=== PATIENT | male | born 1965 | race Caucasian/White ===

== ENCOUNTER 2016-11-24 12:01 | Inpatient (IN) | payer OTHER ==
[2016-11-24] MEDS ORDERED: diphenhydrAMINE 25 MG CAP PO ONE ×2 (12:04→12:31)
[2016-11-24] MEDS ORDERED: DIAZEPAM 5 MG TAB PO ONE (12:04)
[2016-11-24] MEDS ORDERED: NS 1,000 ML IV ONE (12:04)
[2016-11-24] MEDS ORDERED: FAMOTIDINE 20 MG TAB PO ONE (12:04)
[2016-11-24] MEDS ORDERED: ASPIRIN EC 325 MG TAB PO ONE ×2 (12:04→12:32)
--- NOTE | 2016-11-24 12:23 | CPEKG ---
Heart Rate: 54 RR Interval: 1111 P-R Interval: 160 QRSD Interval: 94 QT Interval: 416 QTC Interval: 395 P [place]: 71 QRS [place]: -54 T Wave [place]: -41 EKG Severity - ABNORMAL ECG - EKG Impression: SINUS RHYTHM EKG Impression: PROBABLE LEFT ATRIAL ABNORMALITY EKG Impression: LEFT ANTERIOR FASCICULAR BLOCK EKG Impression: INFERIOR AND LATERAL T WAVE ABNORMALITIES CONCERNING FOR ISCHEMIA Electronically Signed By: Jm Galaviz 24-Nov-2016 18:24:55
[2016-11-24] MEDS ORDERED: FAMOTIDINE 20 MG TAB ONE (12:31)
[2016-11-24] MEDS ORDERED: DIAZEPAM 5 MG TAB ONE (12:32)
[2016-11-24 12:35] LABS: % IMMATURE GRANULYOCYTES 0.4 % (0.0-1.1); ABSOLUTE IMMATURE GRANULOCYTES 0.02 10^3/uL (0.00-0.10); ADD DIFF? NO; ADD MORPH? NO; ADD SCAN? NO; ATYPICAL LYMPHOCYTE FLAG 20 (0-99); FRAGMENT RBC FLAG 0 (0-99); HEMATOCRIT 45.1 % (40.0-51.0); HEMOGLOBIN 15.9 g/dL (13.7-17.5); LEFT SHIFT FLG 0 (0-99); LIPEMIA HEMOLYSIS FLAG 90 (0-99); MEAN CELL HEMOGLOBIN 31.5 pg (27.9-34.1); MEAN CELL HEMOGLOBIN CONCENTR. 35.3 g/dL (32.4-36.7); MEAN CELL VOLUME 89.3 fL (81.5-99.8); MEAN PLATELET VOLUME 11.6 fL (8.7-11.7); PLATELET CLUMPS FLAG 10 (0-99); PLATELET COUNT 178 10^3/uL (150-400); RED BLOOD CELL COUNT 5.05 10^6/uL (4.40-6.38); RED CELL DISTRIBUTION WIDTH 11.6 % (11.5-15.2)
[2016-11-24 12:47] LABS: INR 1.02 (0.83-1.16); PROTIME(PATIENT) 13.3 SEC (12.0-15.0)
[2016-11-24 12:59] LABS: ANION GAP 10 mEq/L (8-16); CALCIUM 9.6 mg/dL (8.5-10.4); CARBON DIOXIDE 23 mEq/l (22-31); CHLORIDE 106 mEq/L (97-110); CHOLESTEROL 202 mg/dL (140-220); CHOLESTEROL/HDL RATIO 5.32 RATIO (1.00-4.97); GLOMERULAR FILTRATION RATE > 60; GLUCOSE 93 mg/dL (70-100); HIGH DENSITY LIPOPROTEIN 38 mg/dL (40-65); LDL/HDL RATIO 3.61 RATIO (1.00-3.64); LOW DENSITY LIPOPROTEIN 137 mg/dL (80-100); NON-HIGH DENSITY LIPOPROTEIN 164 mg/dL (90-129); POTASSIUM 4.4 mEq/L (3.5-5.2); SODIUM 139 mEq/L (134-144); TRIGLYCERIDE 138 mg/dL (40-150); VERY LOW DENSITY LIPOPROTEINS 27 mg/dL (8-25)
[2016-11-24] MEDS ORDERED: LIDOCAINE 1% 30 ML SDV ONE (13:21)
[2016-11-24] MEDS ORDERED: fentaNYL 100 MCG/2 ML INJ ONE ×2 (13:21→14:10)
[2016-11-24] MEDS ORDERED: HEPARIN 10,000 UNIT/10 ML MDV ONE (13:22)
[2016-11-24] MEDS ORDERED: VERAPAMIL 5 MG/2 ML VIAL ONE (13:22)
[2016-11-24] MEDS ORDERED: IOPAMIDOL (ISOVUE-370) 150 ML BTL IV ONE ×2 (13:22→14:19)
[2016-11-24] MEDS ORDERED: MIDAZOLAM 2 MG/2 ML VIAL ONE ×2 (13:22→14:10)
--- NOTE | 2016-11-24 14:53 | PDDXCAT ---
Diagnostic Cath Note - . Date: 11/24/16 Intervention: None *Procedure 1. selective coronary angiography 2. left heart catheterization 3. left ventriculogram Indication: The patient is short of breath with exertion with a high-risk MPI study with transient ischemic dilation as well as multisegmental perfusion deficits on MIBI study and highly elevated calcium score on EBCT heart scan. Access: Right radial artery (a plethysmography trace assisted Víctor's Test was used to document dual artery supply to the hand and index finger prior to access ). *Materials Left Heart Cath size: 5F Left Heart Cath materials: JL3.5, JR4.0, pigtail *Findings-Selective Coronary Angiography LM: The left main is ~5 mm in size and bifurcates into an LAD and circumflex system. There is no significant left main disease. LAD: The LAD is 100% occluded after the first major diagonal with GENARO 0 flow. The proximal LAD is filled by right to left collaterals from the proximal RCA conus branch "arterial [place] of [place]." There are left to right collaterals to a distal acute marginal branch of the RCA. There are left to left collaterals from the first diagonal that supply the distal LAD, which retrograde fills the LAD. The first diagonal is a large vessel and has a 90% proximal obstruction with GENARO III flow it has a better distal target than the LAD angiographically. LCX: The left circumflex is ~3 mm in size. There is an 80% proximal lesion with GENARO III flow. RCA: The right coronary artery is dominant and ~4 mm in size. There is a 95% mid RCA obstruction with GENARO III flow. There is evidence of proximal right to left collateral to the proximal LAD consistent with a proximal LAD occlusion. *Findings-Left Heart Catheterization EDP: 31 mmHg LVEF: 65% AO: 118/18/31 mmHg LVG: There is normal LV systolic function with normal ejection fraction without significant segmental wall motion abnormalities. The visualized portion of the thoracic aorta appears to be within normal limits in size without evidence of radha dissection or aneurysm. There was no evidence of mitral regurgitation under pressurized injection. *Summary Complications: None Estimated blood loss: <50ml Closure method: TR Band Assessment/Conclusion: 1. Severe and multi-vessel flow-limiting coronary artery disease including a 100 % occlusion of the LAD after the first diagonal with GENARO 0 flow, 90% first and major diagonal obstruction with GENARO III flow, 80% proximal left circumflex lesion with GENARO III flow, and 95% mid LAD lesion with GENARO III flow. I discussed the patient with Dr. Gill who will discuss the risk/benefit of bypass surgery with DOS SANTOS to the LAD, rSVG to the left circumflex, LAD diagonal and right coronary artery, as well as other arterial graft options in this young patient. 2. Normal LV systolic function with minor anterolateral wall motion abnormality best described as tardikinesis and normal ejection fraction estimated to be 65%.
[2016-11-24] MEDS ORDERED: ATROPINE SULFATE 1 MG/10 ML SYR IVP PRN (14:54)
[2016-11-24] MEDS ORDERED: ONDANSETRON DISINTEGRATING 4 MG TAB PO PRN (14:54)
[2016-11-24] MEDS ORDERED: ONDANSETRON 4 MG/2 ML VIAL IVP PRN (14:54)
[2016-11-24] MEDS ORDERED: NITROGLYCERIN 0.4 MG BTL SL PRN (14:54)
[2016-11-24] MEDS ORDERED: NS 1,000 ML IV SCH (15:00)
--- NOTE | 2016-11-24 16:42 | GCON ---
[f rep st] CONSULTATION DATE OF CONSULTATION: 11/24/2016 REASON FOR CONSULTATION: Patient seen at the request of Dr. Daren Johnson, with the patient's permissi on. IMPRESSION: 1. Severe 3-vessel coronary artery disease. 2. History of carotid artery disease without significant obstruction. 3. Evidence of remote infarction with an ejection fraction of 51% and inferior and apical wall hypo kinesis. RECOMMENDATIONS: This gentleman should undergo coronary artery revascularization on this admission. He has a critical lesion and has a very large dominant right coronary artery and a totally occlude d LAD with circumflex disease as well. Given his coronary anatomy and lack of warning symptomatolog y, he is agreeable to proceed with surgery in the morning. Risks and complications were reviewed at length with the patient and his significant other. CHIEF COMPLAINT: This is a 51-year-old gentleman with no prior medical history. He requested a cor onary calcium score, which was performed and was markedly elevated at 2464, putting him in the 90th percentile for age matched patients. He had an exercise nuclear stress test with T-wave inversion i n leads 3 and F, with 2-3 mm depression, showed moderate size, moderate intensity area of ischemia i nvolving the apex, mid, and basal inferior wall. There was a 2nd area involving the apex anterior a nd apical septal mid anterior and mid anterior septal wall, consistent with ischemia. He underwent diagnostic left heart catheterization today by Dr. Benton, which revealed severe 3-vessel disease. Please see separate dictation. PREVIOUS MEDICAL HISTORY: As stated. SURGERIES: Denied. SOCIAL HISTORY: He does not smoke and never has. He drinks socially on the weekends. He is very a ctive physically. FAMILY HISTORY: Noncontributory for early or premature coronary atherosclerosis. MEDICATIONS: Aspirin and atorvastatin, which was recently started. Cholesterol status is at present unknown. PHYSICAL EXAMINATION: GENERAL: This is a healthy, middle-aged gentleman, lying supine in bed, acco mpanied by his girlfriend. VITAL SIGNS: 118/76, pulse 70, respirations 14, nonlabored. HEENT: No rmocephalic, PADMINI, EOMI. NECK: Without bruit, adenopathy or thyromegaly. HEART: Rate is regular without murmur, S3, or S4. LUNGS: Clear. ABDOMEN: Soft, nontender. Bowel sounds are active. R ECTAL AND GENITALIA: Deferred. EXTREMITIES: Pedal pulses are 2+ and symmetrical. Echo suggested ejection fraction close to 63%. /[id number]/MODL
[2016-11-24] MEDS ORDERED: CHLORHEXIDINE GLUC HIBICLENS 118 ML BTL TP SCH (21:00)
[2016-11-24] MEDS: MUPIROCIN 2% 22 GM OINT NS SCH (22:00)
[2016-11-25 04:53] LABS: ANION GAP 10 mEq/L (8-16); CARBON DIOXIDE 25 mEq/l (22-31); CHLORIDE 107 mEq/L (97-110); CREATININE 1.1 mg/dL (0.7-1.3); GLOMERULAR FILTRATION RATE > 60; GLUCOSE 87 mg/dL (70-100); POTASSIUM 4.4 mEq/L (3.5-5.2); SODIUM 142 mEq/L (134-144)
[2016-11-25] MEDS ORDERED: SODIUM BICARBONATE 20 MEQ, LIDOCAINE 1% 10 ML in NORMOSOL-R 1,000 ML MISC ONE (06:00)
[2016-11-25] MEDS ORDERED: ceFAZolin 2 GM/DEXTROSE 100 ML IV ONE (06:00)
[2016-11-25] MEDS ORDERED: VERAPAMIL 5 MG, NITROGLYCERIN 2.5 MG, HEPARIN 500 UNIT, SODIUM BICARBONATE 0.2 MEQ in L... MISC ONE (06:00)
[2016-11-25] MEDS ORDERED: niCARdipine/NACL 200 ML IV ONE (06:00)
[2016-11-25] MEDS ORDERED: NS 1,000 ML IV ONE (06:00)
[2016-11-25] MEDS ORDERED: AMINOCAPROIC ACID 5 GM/20 ML VIAL IV ONE (06:00)
[2016-11-25] MEDS ORDERED: MANNITOL 25% 12.5 GM/50 ML VIAL IV ONE (06:00)
[2016-11-25] MEDS ORDERED: INSULIN REGULAR HUMAN 100 UNIT in NS 100 ML IV ONE (06:00)
[2016-11-25] MEDS ORDERED: CITRATE DEXTROSE SOLN 500 ML BAG MISC ONE (06:00)
[2016-11-25] MEDS ORDERED: NOREPINEPHRINE BITARTRATE 16 MG in NS 250 ML IV ONE (06:00)
[2016-11-25] MEDS ORDERED: PHENYLEPHRINE HCL 50 MG in NS 250 ML IV ONE (06:00)
[2016-11-25] MEDS ORDERED: LR 1,000 ML IV ONE (06:33)
[2016-11-25] MEDS ORDERED: PROTAMINE SULFATE 50 MG/5 ML VIAL IVP ONE (06:39)
[2016-11-25] MEDS ORDERED: AMINOCAPROIC ACID 5 GM/20 ML VIAL ONE (06:40)
[2016-11-25] MEDS ORDERED: MILRINONE/DEXTROSE/100 ML BAG IV ONE (06:40)
[2016-11-25] MEDS ORDERED: POTASSIUM Cl (KCl) 20 MEQ/50 ML BAG IV ONE (06:40)
[2016-11-25] MEDS ORDERED: CALCIUM CHLORIDE 1 GM/10 ML INJ ONE (06:40)
[2016-11-25] MEDS ORDERED: ALBUMIN 5% 250 ML BOTTLE IV ONE (06:40)
[2016-11-25] MEDS ORDERED: NA BICARBONATE 50 MEQ/50 ML VIAL ONE (06:40)
[2016-11-25] MEDS ORDERED: LIDOCAINE 2% 100 MG/5 ML SYR ONE (06:40)
[2016-11-25] MEDS ORDERED: ceFAZolin 1 GM VIAL ONE (06:41)
[2016-11-25] MEDS ORDERED: HEPARIN 10,000 UNIT/10 ML MDV ONE (06:41)
[2016-11-25] MEDS ORDERED: MAGNESIUM SULFATE 1 GM/2 ML VIAL ONE (06:41)
[2016-11-25] MEDS ORDERED: niCARdipine/NACL/200 ML BAG IV ONE (06:41)
[2016-11-25] MEDS ORDERED: methylPREDNISolone SOD SUCC 1 GM/8 ML VIAL ONE (06:41)
[2016-11-25] MEDS ORDERED: CITRATE DEXTROSE SOLN 500 ML BAG ONE (06:41)
[2016-11-25] MEDS ORDERED: AMIODARONE HCL 150 MG/3 ML VIAL ONE (06:41)
[2016-11-25] MEDS ORDERED: DOPamine/DEXTROSE/250 ML BAG IV ONE (06:41)
[2016-11-25] MEDS ORDERED: ADENOSINE 6 MG/2 ML VIAL ONE (06:41)
[2016-11-25] MEDS ORDERED: REMIFENTANIL HCL 1 MG VIAL ONE (07:04)
[2016-11-25] MEDS ORDERED: PROPOFOL/EMULSION 500 MG/50 ML BOTTLE IV ONE (07:05)
[2016-11-25] MEDS ORDERED: fentaNYL 250 MCG/5 ML INJ ONE (07:05)
[2016-11-25] MEDS ORDERED: ROCURONIUM 100 MG/10 ML VIAL ONE ×2 (07:06→11:53)
[2016-11-25] MEDS ORDERED: MIDAZOLAM 2 MG/2 ML VIAL ONE (07:07)
[2016-11-25] MEDS ORDERED: DEXMEDETOMIDINE HCL 400 MCG in NS 100 ML IV SCH (07:30)
[2016-11-25] MEDS ORDERED: PAPAVERINE HCL 60 MG/2 ML SDV ONE (07:35)
[2016-11-25] MEDS ORDERED: MINERAL OIL 10 ML VIAL TP ONE (07:35)
[2016-11-25] MEDS ORDERED: VERAPAMIL 5 MG/2 ML VIAL ONE (07:35)
[2016-11-25] MEDS ORDERED: morphINE *ANESTHESIA ONLY* 10 MG/ML VIAL ONE (10:08)
[2016-11-25 10:55] LABS: HEMOGLOBIN A1C 5.4 % (4.0-6.0)
[2016-11-25] MEDS ORDERED: PANTOPRAZOLE SODIUM 40 MG in NS 100 ML IV ONE (11:30)
[2016-11-25] MEDS ORDERED: BISACODYL 10 MG SUPP PR PRN (11:30)
[2016-11-25] MEDS ORDERED: CEPACOL LOZENGE PO PRN (11:30)
[2016-11-25] MEDS ORDERED: METOCLOPRAMIDE 10 MG/2 ML VIAL IVP PRN (11:30)
[2016-11-25] MEDS ORDERED: INSULIN REGULAR HUMAN 100 UNIT in NS 100 ML IV SCH (11:30)
[2016-11-25] MEDS ORDERED: NS 1,000 ML IV SCH (11:30)
[2016-11-25] MEDS ORDERED: POTASSIUM Cl (KCl) 50 ML IV PRN (11:30)
[2016-11-25] MEDS ORDERED: ACETAMINOPHEN 650 MG SUPP PR PRN (11:30)
[2016-11-25] MEDS ORDERED: POLYETHYLENE GLYCOL 3350 17 GM PKT PO PRN (11:30)
[2016-11-25] MEDS ORDERED: MAGNESIUM HYDROXIDE 30 ML UDCUP PO PRN (11:30)
[2016-11-25] MEDS ORDERED: MEPERIDINE 25 MG/ML SYR IVP PRN (11:30)
[2016-11-25] MEDS ORDERED: LACTULOSE 20 GM/30 ML UDCUP PO PRN (11:30)
[2016-11-25] MEDS ORDERED: D50W 25 GM/50 ML SYR IVP PRN (11:30)
[2016-11-25] MEDS ORDERED: SODIUM CL NASAL 45 ML BTL EACHNARE PRN (11:30)
[2016-11-25] MEDS ORDERED: MAGNESIUM SULF 2 GM/WATER 50 ML IV ONE (11:30)
[2016-11-25] MEDS ORDERED: IPRATROPIUM/ALBUTEROL 3 ML DEYVIAL IH PRN (11:37)
[2016-11-25] MEDS ORDERED: oxyCODONE IR 5 MG TAB PO PRN (11:37)
[2016-11-25] MEDS ORDERED: DEXAMETHASONE 4 MG/ML VIAL ONE ×2 (11:53)
[2016-11-25] MEDS ORDERED: epHEDrine SULFATE 10 MG/ML SYR ONE (11:53)
[2016-11-25] MEDS ORDERED: ALBUMIN 5% 500 ML BOTTLE IV ONE (11:59)
--- NOTE | 2016-11-25 13:01 | POSTOPPROG ---
Post Op Note Date of Operation: 11/25/16 Surgeon: Rodrigo Gill Wood Carving Lathe Operator: Jasiel Anesthesiologist: Noble Anesthesia: GET(General Endotracheal) Pre-op Diagnosis: ASHD Procedure: CAB 5 Jorgensen-Lad, Gege- Pda, SVG-Dg, Lcx, PLRCA, Atriclip ROBERT, EVH Inf/Abcess present in the surg proc area at time of surgery?: No EBL: 50-100 Drains: Other (3 blakes)
--- NOTE | 2016-11-25 13:54 | GOP ---
[f rep st] OPERATIVE REPORT DATE OF OPERATION: 11/25/2016 SURGEON: Rodrigo Gill DO JOCKEY'S AGENT: MIKHAIL Duke PA-C ANESTHESIOLOGIST: Augustin Valerio MD PREOPERATIVE DIAGNOSIS: Arteriosclerotic heart disease. POSTOPERATIVE DIAGNOSIS: Arteriosclerotic heart disease. PROCEDURE PERFORMED: 1. Coronary artery bypass grafting x5(2 arterial grafts) with the left internal mammary artery to the left anterior descending, right internal mammary artery to the proximal posterior descending artery, saphenous vein graft to the posterolateral branch of the right ,diagonal and lateral circumflex. 2. Endoscopic vein harvest by Corine Weathers PA-C, anesthesiologist assistant certified throughout the procedure. 3. AtriClip to the left atrial appendage. FINDINGS: The patient was noted to have severe 3-vessel disease. Was referred for surgical intervention. Consent was obtained. DESCRIPTION OF PROCEDURE: He was brought to the operating room, prepped and draped in sterile classical manner. Sternotomy was performed. Both mammaries were harvested while the entire left greater saphenous vein was harvested endoscopically by Corine Weathers PA-C. Pericardium was opened. He was heparinized, cannulated. Cardiopulmonary bypass was begun. A cardioplegic arrest was obtained with antegrade cardioplegia, topical hypothermia, and systemic cooling. Initially, the lateral circumflex vessel was a 2.5 mm vessel was grafted with a good quality vein and brought off the ascending aorta with a cross-clamp on. We then grafted the diagonal vessel which was a 1.8 mm good quality vessel, bringing it off the proximal ascending aorta with 5-0 Prolene. I then grafted the mammary to the mid-LAD where there was a moderately obstructive lesion. It was soft anteriorly, I divided the plaque, and an essentially onlay patch with a large mammary to perfuse both proximally and distally to this chronically occluded vessel. Rewarming was begun while the posterolateral branch of the right was grafted with a good quality vein. It was a 2 mm vessel. It was brought off the ascending aorta with a cross-clamp on as well. We then grafted the right internal mammary artery to the very proximal PDA which had a high takeoff at the acute angle of the heart without tension and good slack in the vessel. It was an excellent quality vessel and an excellent quality conduit. It was tacked to the epicardium. I then placed a 35 mm AtriClip across the base of left atrial appendage flush with the left atrial wall. Cross-clamp was removed with suction on the ascending aortic vent. Spontaneous cardiac activity was noted to resume. The patient was rewarmed, weaned from bypass. Heparin was reversed with protamine. The cannula was removed and oversewn. Two ventricular pacing wires, 2 pleural, and 1 mediastinal drain were placed. The thymic fat and pericardium were closed. The chest was closed in standard fashion. The patient was returned to ICU in stable condition. /[id number]/MODL MTDD
[2016-11-25] MEDS: fentaNYL 100 MCG/2 ML INJ IVP PRN ×2 (14:07→21:55)
[2016-11-25] MEDS: MUPIROCIN 2% 22 GM OINT NS SCH ×2 (14:10→19:25)
[2016-11-25] MEDS: ceFAZolin 2 GM/DEXTROSE 100 ML IV SCH ×2 (14:10→21:55)
[2016-11-25] MEDS ORDERED: PROPOFOL/EMULSION 1,000 MG/100 ML BOTTLE IV ONE (18:06)
[2016-11-25] MEDS ORDERED: PROPOFOL/EMULSION 100 ML IV SCH (18:12)
--- NOTE | 2016-11-25 18:29 | GCON ---
[f rep st] CONSULTATION PULMONARY CONSULTATION DATE OF CONSULTATION: 11/25/2016 HISTORY OF PRESENT ILLNESS: The patient is a 51-year-old male with no previous medical history, but requested a coronary calcium score which was markedly elevated. This was followed by a nuclear str ess test showing T-wave inversions and subsequently underwent cardiac catheterization showing severe 3-vessel disease. He was subsequently admitted today for coronary artery bypass grafting which was performed by Dr. Gill without any complications. He subsequently arrived in the ICU. He was stil l on a ventilator and despite following postoperative protocol, he was unable to be extubated. He c ontinued to have low tidal volumes and oxygen desaturations despite multiple maneuvers. He has no p revious lung disease and is a lifelong nonsmoker. REVIEW OF SYSTEMS: Otherwise negative. PAST MEDICAL HISTORY: Includes 3-vessel coronary disease. I believe he has carotid artery disease without obstruction and may have had a remote infarct but is thought to have an EF of 51%. PREVIOUS SURGERY: Besides today is none. SOCIAL HISTORY: He is a nonsmoker. No significant alcohol or recreational drugs. FAMILY HISTORY: Noncontributory. MEDICATIONS: As an outpatient include aspirin and atorvastatin. His current medications include Ty lenol, DuoNeb, aspirin, Lipitor, Dulcolax, Ancef, Precedex, fentanyl, insulin, lactulose, Reglan p.r .n., morphine p.r.n., Zofran p.r.n., Protonix, and Senokot. PHYSICAL EXAMINATION: VITAL SIGNS: By the time of my visit, he had a blood pressure 120/72, heart rate of 77, respirations 26, oxygen saturation 96% on FiO2 of 40%. GENERAL: He was moderately kalpesh rosemary but no obvious distress and able to follow some commands. HEENT: Pupils are equally round and reactive to light. Nonicteric, noninjected. Mucous membranes are not well visualized because of th e presence of the ET tube. NECK: Veins were not dilated. RESPIRATORY: Breath sounds were clear t o auscultation bilaterally without wheezes, rubs or rales. HEART: Regular rate and rhythm, without murmurs, rubs, or gallops. His chest wall incision looked clean and dry. ABDOMEN: Soft, nontende r, with hypoactive bowel tones. Mediastinal tubes appear to be well intact, without evidence of inf ection or bleeding. EXTREMITIES: Showed no clubbing, cyanosis, or edema. NEUROLOGIC: Nonfocal, i ncluding cranial nerves and deep tendon reflexes. OBJECTIVE DATA: Includes a normal CBC, as well as basic metabolic panel. His chest x-ray showed no infiltrates and his ET tube was in good position. ASSESSMENT/PLAN: 1. Respiratory failure after coronary artery bypass grafting. I think this is all acute, leftover from surgery. He does not appear to be doing well today but I will look at a chest x-ray in the [facility] and hopefully we will be able to extubate by then without difficulty. I would leave him on min imal sedation overnight with Precedex and propofol and limited narcotics to make sure his pain is we ll controlled without over sedating him. 2. Status post CABG. He seems to be doing well from this perspective and there are no obvious post operative complications. /[id number]/MODL
[2016-11-25] MEDS: ALBUMIN 5% 250 ML IV PRN ×2 (19:29→20:26)
[2016-11-25 21:46] LABS: HEMATOCRIT 37.7 % (40.0-51.0); HEMOGLOBIN 13.2 g/dL (13.7-17.5); MEAN CELL HEMOGLOBIN 31.6 pg (27.9-34.1); MEAN CELL VOLUME 90.2 fL (81.5-99.8); RED BLOOD CELL COUNT 4.18 10^6/uL (4.40-6.38); RED CELL DISTRIBUTION WIDTH 11.6 % (11.5-15.2)
[2016-11-25 21:55] LABS: ANION GAP 8 mEq/L (8-16); CALCIUM 8.7 mg/dL (8.5-10.4); CARBON DIOXIDE 23 mEq/l (22-31); CHLORIDE 108 mEq/L (97-110); CREATININE 0.9 mg/dL (0.7-1.3); GLOMERULAR FILTRATION RATE > 60; GLUCOSE 102 mg/dL (70-100); POTASSIUM 4.6 mEq/L (3.5-5.2); SODIUM 139 mEq/L (134-144)
[2016-11-25 22:07] LABS: BASE EXCESS -4.3 mEq/L (-2.5-2.5); BICARBONATE 23 mEq/L (22-26); MEASURED OXYGEN SATURATION 94 % (92-95); PCO2 58 mmHg (34-38); PO2 85 mmHg (65-75); TCO2 25 mEq/L (23-27)
[2016-11-25 23:13] LABS: BASE EXCESS -4.1 mEq/L (-2.5-2.5); BICARBONATE 21 mEq/L (22-26); MEASURED OXYGEN SATURATION 96 % (92-95); PCO2 45 mmHg (34-38); PO2 89 mmHg (65-75); TCO2 23 mEq/L (23-27)
[2016-11-26 01:27] LABS: % IMMATURE GRANULYOCYTES 0.4 % (0.0-1.1); ABSOLUTE IMMATURE GRANULOCYTES 0.04 10^3/uL (0.00-0.10); ADD DIFF? NO; ADD MORPH? NO; ADD SCAN? NO; ATYPICAL LYMPHOCYTE FLAG 0 (0-99); FRAGMENT RBC FLAG 0 (0-99); HEMATOCRIT 35.5 % (40.0-51.0); HEMOGLOBIN 12.5 g/dL (13.7-17.5); LEFT SHIFT FLG 30 (0-99); LIPEMIA HEMOLYSIS FLAG 90 (0-99); MEAN CELL HEMOGLOBIN 31.7 pg (27.9-34.1); MEAN CELL HEMOGLOBIN CONCENTR. 35.2 g/dL (32.4-36.7); MEAN CELL VOLUME 90.1 fL (81.5-99.8); MEAN PLATELET VOLUME 11.7 fL (8.7-11.7); PLATELET CLUMPS FLAG 0 (0-99); PLATELET COUNT 108 10^3/uL (150-400); RED BLOOD CELL COUNT 3.94 10^6/uL (4.40-6.38); RED CELL DISTRIBUTION WIDTH 11.6 % (11.5-15.2)
[2016-11-26 01:48] LABS: ANION GAP 7 mEq/L (8-16); CARBON DIOXIDE 22 mEq/l (22-31); CHLORIDE 111 mEq/L (97-110); CREATININE 0.8 mg/dL (0.7-1.3); GLOMERULAR FILTRATION RATE > 60; GLUCOSE 111 mg/dL (70-100); POTASSIUM 4.1 mEq/L (3.5-5.2); SODIUM 140 mEq/L (134-144)
[2016-11-26 04:45] LABS: % IMMATURE GRANULYOCYTES 0.4 % (0.0-1.1); ABSOLUTE IMMATURE GRANULOCYTES 0.04 10^3/uL (0.00-0.10); ADD DIFF? NO; ADD MORPH? NO; ADD SCAN? NO; ATYPICAL LYMPHOCYTE FLAG 0 (0-99); FRAGMENT RBC FLAG 0 (0-99); HEMATOCRIT 37.2 % (40.0-51.0); HEMOGLOBIN 13.1 g/dL (13.7-17.5); LEFT SHIFT FLG 20 (0-99); LIPEMIA HEMOLYSIS FLAG 90 (0-99); MEAN CELL HEMOGLOBIN 31.6 pg (27.9-34.1); MEAN CELL HEMOGLOBIN CONCENTR. 35.2 g/dL (32.4-36.7); MEAN CELL VOLUME 89.9 fL (81.5-99.8); MEAN PLATELET VOLUME 11.8 fL (8.7-11.7); PLATELET CLUMPS FLAG 0 (0-99); PLATELET COUNT 117 10^3/uL (150-400); RED BLOOD CELL COUNT 4.14 10^6/uL (4.40-6.38); RED CELL DISTRIBUTION WIDTH 11.6 % (11.5-15.2)
[2016-11-26 05:00] LABS: ANION GAP 10 mEq/L (8-16); CALCIUM 8.7 mg/dL (8.5-10.4); CARBON DIOXIDE 23 mEq/l (22-31); CHLORIDE 108 mEq/L (97-110); CREATININE 0.9 mg/dL (0.7-1.3); GLOMERULAR FILTRATION RATE > 60; GLUCOSE 115 mg/dL (70-100); POTASSIUM 4.3 mEq/L (3.5-5.2); SODIUM 141 mEq/L (134-144)
[2016-11-26] MEDS: ceFAZolin 2 GM/DEXTROSE 100 ML IV SCH ×3 (05:18→21:48)
[2016-11-26] MEDS: HEPARIN 5,000 UNIT/0.5 ML SYR SC SCH ×3 (05:21→21:48)
[2016-11-26] MEDS: ALBUMIN 5% 250 ML IV PRN ×2 (06:09→08:21)
[2016-11-26] MEDS ORDERED: LORazepam 2 MG/ML INJ IVP ONE (06:30)
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
[2016-11-26] MEDS ORDERED: ALBUMIN 5% 250 ML IV ONE ×3 (08:24→22:00)
[2016-11-26] MEDS ORDERED: KETOROLAC 30 MG/1 ML SDV IVP ONE ×2 (08:30→21:30)
[2016-11-26] MEDS: HYDROmorphONE/DILAUDID 1 MG/ML SYR IVP PRN ×6 (08:32→20:43)
[2016-11-26] MEDS ORDERED: LORazepam 2 MG/ML INJ ONE (08:59)
[2016-11-26 09:56] LABS: POTASSIUM 4.5 mEq/L (3.5-5.2)
[2016-11-26] MEDS: ASPIRIN 81 MG CHEWABLE TAB PO SCH (10:20)
[2016-11-26] MEDS: PANTOPRAZOLE SODIUM 40 MG TAB PO SCH (10:20)
[2016-11-26] MEDS: MUPIROCIN 2% 22 GM OINT NS SCH ×2 (10:20→20:48)
[2016-11-26] MEDS ORDERED: ALPRAZolam 0.25 MG TAB PO PRN (12:00)
[2016-11-26] MEDS ORDERED: ALBUMIN 5% 250 ML BOTTLE IV ONE (12:07)
--- NOTE | 2016-11-26 13:45 | PDINTPN ---
First Aid Nurse Progress Note Assessment/Plan: Assessment/plan: 51 M found to have severe CAD on routine screening and stress tests. Underwent 5 v CABG complicated by slow weaning, but self extubated overnight. * Respiratory failure postop- no eviednce of VC injury or stridor and saturation adequate on minimal O2. Transferring to PCU Objective: Vital Signs Temp Pulse Resp BP Pulse Ox 36.8 C 87 20 97/60 L 95 11/26/16 12:00 11/26/16 13:00 11/26/16 13:00 11/26/16 13:00 11/26/16 13:00 Laboratory Results 11/26/16 04:35 11/26/16 09:30 11/25/16 11/26/16 11/27/16 05:59 05:59 05:59 Intake Total 1050 1297.6 100 Output Total 3880 210 Balance 1050 -2582.4 -110 PT 13.3 SEC (12.0-15.0) 11/24/16 12:30 INR 1.02 (0.83-1.16) 11/24/16 12:30 Physical Exam - Physical Exam General Appearance: WD/WN, alert, no apparent distress EENT: PERRL/EOMI Neck: supple Respiratory: chest non-tender, lungs clear, normal breath sounds Cardiac/Chest: normal peripheral pulses, regular rate, rhythm Abdomen: normal bowel sounds, non-tender, soft, distended Skin: normal color, warm/dry Lymphatic: no adenopathy Extremities: normal range of motion, No pedal edema Neuro/Psych: alert, normal mood/affect, oriented x 3 ICD10 Worksheet Patient Problems: Problems Problem Status Onset S/P CABG x 5 Acute ~11/25/16 CAD, multiple vessel Chronic Mitral regurgitation Chronic
[2016-11-26 14:08] LABS: POTASSIUM 4.5 mEq/L (3.5-5.2)
[2016-11-26] MEDS: HYDROmorphONE/DILAUDID 2 MG TAB PO PRN ×2 (15:19→19:35)
[2016-11-26] MEDS ORDERED: ALPRAZolam 0.25 MG TAB PO SCH (17:00)
[2016-11-26] MEDS: DEXMEDETOMIDINE HCL 400 MCG in NS 100 ML IV SCH (18:17)
[2016-11-26] MEDS: ALPRAZolam 0.25 MG TAB PO SCH (20:46)
[2016-11-26] MEDS: SENNOSIDES/DOCUSATE SODIUM TAB PO SCH (20:47)
[2016-11-27] MEDS ORDERED: ALBUMIN 5% 500 ML BOTTLE IV ONE (00:17)
[2016-11-27] MEDS ORDERED: ALBUMIN 5% 500 ML IV ONE (00:30)
[2016-11-27] MEDS: HYDROmorphONE/DILAUDID 2 MG TAB PO PRN ×4 (00:42→13:08)
[2016-11-27] MEDS: ALPRAZolam 0.25 MG TAB PO SCH ×6 (01:11→21:56)
[2016-11-27] MEDS: DEXMEDETOMIDINE HCL 400 MCG in NS 100 ML IV SCH (01:14)
[2016-11-27] MEDS ORDERED: DOPamine/DEXTROSE/250 ML BAG IV ONE (02:24)
[2016-11-27 04:49] LABS: % IMMATURE GRANULYOCYTES 0.4 % (0.0-1.1); ABSOLUTE IMMATURE GRANULOCYTES 0.03 10^3/uL (0.00-0.10); ADD DIFF? NO; ADD MORPH? NO; ADD SCAN? NO; ATYPICAL LYMPHOCYTE FLAG 0 (0-99); FRAGMENT RBC FLAG 0 (0-99); HEMATOCRIT 30.9 % (40.0-51.0); HEMOGLOBIN 10.4 g/dL (13.7-17.5); LEFT SHIFT FLG 10 (0-99); LIPEMIA HEMOLYSIS FLAG 80 (0-99); MEAN CELL HEMOGLOBIN 31.2 pg (27.9-34.1); MEAN CELL HEMOGLOBIN CONCENTR. 33.7 g/dL (32.4-36.7); MEAN CELL VOLUME 92.8 fL (81.5-99.8); MEAN PLATELET VOLUME 11.2 fL (8.7-11.7); PLATELET CLUMPS FLAG 10 (0-99); PLATELET COUNT 85 10^3/uL (150-400); RED BLOOD CELL COUNT 3.33 10^6/uL (4.40-6.38); RED CELL DISTRIBUTION WIDTH 11.9 % (11.5-15.2)
[2016-11-27] MEDS: HEPARIN 5,000 UNIT/0.5 ML SYR SC SCH (05:21)
[2016-11-27 05:30] LABS: ANION GAP 8 mEq/L (8-16); CALCIUM 8.6 mg/dL (8.5-10.4); CARBON DIOXIDE 27 mEq/l (22-31); CHLORIDE 104 mEq/L (97-110); GLOMERULAR FILTRATION RATE > 60; GLUCOSE 111 mg/dL (70-100); POTASSIUM 4.3 mEq/L (3.5-5.2); SODIUM 139 mEq/L (134-144)
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
[2016-11-27] MEDS: ASPIRIN 81 MG CHEWABLE TAB PO SCH (09:15)
[2016-11-27] MEDS: SENNOSIDES/DOCUSATE SODIUM TAB PO SCH ×2 (09:16→21:56)
[2016-11-27] MEDS: MUPIROCIN 2% 22 GM OINT NS SCH ×2 (09:16→21:57)
[2016-11-27] MEDS: PANTOPRAZOLE SODIUM 40 MG TAB PO SCH (09:16)
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
[2016-11-27] MEDS: ACETAMINOPHEN 325 MG TAB PO PRN (13:12)
[2016-11-27 13:55] LABS: CALCULATED OXYGEN SATURATION 84 % (92-95)
[2016-11-27 13:55] LABS: CALCULATED OXYGEN SATURATION 92 % (92-95)
[2016-11-27 13:55] LABS: CALCULATED OXYGEN SATURATION 93 % (92-95)
[2016-11-27] MEDS ORDERED: HYDROmorphONE/DILAUDID 2 MG TAB PO PRN (14:14)
[2016-11-27] MEDS: OXYCODONE/APAP 5/325 TAB PO PRN ×2 (17:03→21:56)
[2016-11-28] MEDS: ALPRAZolam 0.25 MG TAB PO SCH ×3 (03:40→07:41)
[2016-11-28] MEDS: OXYCODONE/APAP 5/325 TAB PO PRN ×4 (03:40→20:54)
[2016-11-28] MEDS: ATORVASTATIN CALCIUM 40 MG TAB PO SCH (07:40)
[2016-11-28] MEDS: ASPIRIN 81 MG CHEWABLE TAB PO SCH (07:40)
[2016-11-28] MEDS: PANTOPRAZOLE SODIUM 40 MG TAB PO SCH (07:40)
[2016-11-28] MEDS: SENNOSIDES/DOCUSATE SODIUM TAB PO SCH ×2 (07:40→20:48)
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
[2016-11-28] MEDS ORDERED: ALPRAZolam 0.25 MG TAB PO PRN ×2 (09:59→10:49)
[2016-11-28] MEDS ORDERED: POTASSIUM CL 20 MEQ TAB PO ONE ×2 (10:49→17:15)
[2016-11-28] MEDS ORDERED: FUROSEMIDE 40 MG/4 ML VIAL IVP ONE (10:49)
[2016-11-28] MEDS: MUPIROCIN 2% 22 GM OINT NS SCH (12:34)
[2016-11-28] MEDS: METOPROLOL TARTRATE 25 MG TAB PO SCH ×2 (12:35→20:48)
--- NOTE | 2016-11-28 13:25 | SOAPPROG ---
SOAP Progress Note Assessment/Plan: Assessment: Plan: Subjective: Afebrile VSS Up in chair. Minimal pain. Eating VSS Wound clean Cor RRR w/o m Lungs diminished very base on left. Stable. Prob home in am Objective: Vital Signs Temp Pulse Resp BP Pulse Ox 37.2 C 81 18 142/91 H 93 11/28/16 04:00 11/28/16 13:07 11/28/16 13:07 11/28/16 13:07 11/28/16 13:07 Laboratory Results 11/28/16 06:05 11/27/16 04:40 11/27/16 11/28/16 11/29/16 05:59 05:59 05:59 Intake Total 1914.6 1160 Output Total 1065 1150 Balance 849.6 10 PT 13.3 SEC (12.0-15.0) 11/24/16 12:30 INR 1.02 (0.83-1.16) 11/24/16 12:30 ICD10 Worksheet Patient Problems: Problems Problem Status Onset S/P CABG x 5 Acute ~11/25/16 CAD, multiple vessel Chronic Mitral regurgitation Chronic
[2016-11-28] MEDS ORDERED: HYDROCODONE/APAP 5/325 TAB PO PRN (16:00)
[2016-11-28] MEDS ORDERED: FUROSEMIDE 20 MG/2 ML VIAL IVP ONE (17:15)
[2016-11-29] MEDS: ACETAMINOPHEN 325 MG TAB PO PRN (02:43)
[2016-11-29] MEDS: OXYCODONE/APAP 5/325 TAB PO PRN ×3 (06:39→14:41)
[2016-11-29 07:09] LABS: POTASSIUM 3.9 mEq/L (3.5-5.2)
--- NOTE | 2016-11-29 08:45 | SOAPPROG ---
SOAP Progress Note Assessment/Plan: Assessment: POD#4 CABG x 5 (DOS SANTOS-LAD, NAMITA-PDA, SV-PLR, SV-D1, SV-OM1), prophylactic AtriClip ligation ROBERT, EVH LLE Atypical angina/severe CAD with preserved LV systolic fx - s/p CABG5 with 2 arterial conduits. Hemodynamically stable early postop course without vasoactive support. No tachyarrhythmias. Tubes and wires out. Moderate volume overload diuresed. Secondary prevention with ASA, statin and BB as tolerated. Mild functional MR - Not severe enough to warrant MVA. Surveillance per cards. Acute expected blood loss anemia with thrombocytopenia - Stable. No transfusions required. H/H > 10/30 maintained. Postoperative pain - Well controlled post tube removal. Plan: Ok for discharge. Instructions re diet, meds, activity, wound care and f/u to be reviewed in presence of girlfriend. 11/29/16 08:37 Subjective: Slept poorly. Tried to minimize narc use yest and fell behind by bedtime. Better this am. Would like to go home after lunch. Objective: Vital Signs Temp Pulse Resp BP Pulse Ox 35.3 C L 67 16 112/80 96 11/29/16 07:44 11/29/16 07:44 11/29/16 07:44 11/29/16 07:44 11/29/16 07:44 Laboratory Results 11/28/16 06:05 11/29/16 06:35 11/28/16 11/29/16 11/30/16 05:59 05:59 05:59 Intake Total 1160 1350 Output Total 1150 300 Balance 10 1050 PT 13.3 SEC (12.0-15.0) 11/24/16 12:30 INR 1.02 (0.83-1.16) 11/24/16 12:30 HR, rhythm and BP controlled. Almost off O2. Balanced I/Os. 1 kg below admit wt. Platelet rebound noted. Physical Exam - Physical Exam General Appearance: alert, no apparent distress Respiratory: lungs clear Cardiac/Chest: regular rate, rhythm, other (Sternum grossly stable. Sternotomy and LLE venotomy CDI) Abdomen: non-tender, soft Skin: warm/dry Extremities: other (no visible edema) ICD10 Worksheet Patient Problems: Problems Problem Status Onset S/P CABG x 5 Acute ~11/25/16 CAD, multiple vessel Chronic Mitral regurgitation Chronic
[2016-11-29] MEDS ORDERED: METOPROLOL SUCCINATE XR 25 MG TAB PO SCH (09:00)
[2016-11-29] MEDS: PANTOPRAZOLE SODIUM 40 MG TAB PO SCH (10:07)
[2016-11-29] MEDS: ATORVASTATIN CALCIUM 40 MG TAB PO SCH (10:07)
[2016-11-29] MEDS: ASPIRIN 81 MG CHEWABLE TAB PO SCH (10:07)
[2016-11-29] MEDS: SENNOSIDES/DOCUSATE SODIUM TAB PO SCH (10:08)
[2016-11-29 11:26] VITALS: BP 106/81; PULSE 74; TEMP 95.1
[2016-11-29 11:55] VITALS: RESP 13; O2SAT 84
--- NOTE | 2016-11-29 17:03 | PDDCSUM ---
Discharge Summary Discharge Summary: DATE OF ADMISSION: 11/24/16 DATE OF DISCHARGE: 11/29/16 DISPOSITION: Home, self-care PRINCIPAL ADMISSION DIAGNOSES: Atypical angina with high risk stress test PRINCIPAL DISCHARGE DIAGNOSES: 1. Severe multivessel coronary artery disease 2. Mild carotid atherosclerosis 3. Left ventricular diastolic dysfunction 4. Functional mitral regurgitation, mild 5. Status post coronary artery bypass grafting x 5 6. Status post prophylactic AtriClip ligation of the left atrial appendage 7. Acute expected blood loss anemia 8. Acute anxiety, reactive to pain HISTORY OF PRESENT ILLNESS: 51 yo physically active male with increased dyspnea during activity, a high coronary calcium score by EBCT, and multisegmental perfusion defects with an anterolateral wall motion abnormality by MPI, admitted for elective left heart catheterization. 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 Carotid US negative for prohibitive neurologic risk and referred for urgent CABG. PERTINENT PAST MEDICAL HISTORY: Dyslipidemia MEDICATIONS ON ADMISSION: ASA 81 mg daily, Lipitor 40 mg daily (recently started) ALLERGIES/SENSITIVITIES: NKDA CONSULTANTS: CV surgery ([facility]), Pulmonology/critical care ([facility]) PROCEDURES/IMAGIN/20 ([facility]): Left heart catheterization with selective coronary angiography and left ventriculogram. Access via right radial artery. 11/24 Carotid ultrasound 11/25 ([facility]): Coronary artery bypass grafting x 5 (DOS SANTOS-LAD, NAMITA-PDAR, SV-PLR, SV-D1, SV-OM1). Takedown bilateral internal mammary arteries. Endoscopic vein harvest left leg. Prophylactic AtriClip ligation of the left atrial appendage. ABBREVIATED HOSPITAL COURSE BY ACTIVE PROBLEM LIST: 1. Atypical angina/severe CAD with preserved LV systolic fx - Fully revascularized, employing 2 arterial conduits. Radial arteries considered but not used as left handed and rt radial instrumented for LHC. Hemodynamically stable postop course. No tachyarrhythmias. Moderate volume overload swiftly diuresed. Secondary prevention with ASA, BB and statin. 2. Mild functional MR - Incidental intraop finding. Not severe enough to warrant MVA. Surveillance per cards. 3. Acute expected blood loss anemia with thrombocytopenia - Stable. No transfusions required. H/H > 10/30 maintained. Appropriate platelet rebound noted. 4. Postoperative pain - Exacerbated by muscular physique, bilateral CALVIN harvest , and bilateral pleural tubes. Assoc w low tidal volumes and oxygen desaturations delaying extubation, and episodic panic attacks with hyperventilation once extubated. Improved pain management with scheduled narcotics and anxiolytics. Significant reduction in narcotic dosing and xanax use once tubes out. DISCHARGE CLINICAL INFORMATION: Sternum grossly stable. Sternotomy and LLE venotomy CDI, sutured, +Dermabond. HR 70-80s. SBP 110s-120s. SpO2 87% on RA and >93% on 1 Lpm O2. Wt 1 kg below admission at 84.1 kilos. WBC 8.2, Hgb 10.4, HCT 30.9, Plt 113, Na 144, K 4.6, Cr 0.9 Lipid panel upon admission: TC 202, LDL 137, HDL 38, TG 138 Preop HgbA1c: 5.4% DISCHARGE MEDICATIONS: As on admission with the following NEW prescriptions: 1. Toprol XL 25 mg daily. 2. Xanax 0.25 mg q 8hrs prn anxiety. 3. Percocet 5/325, 1-2 tabs q 4-6 hrs prn incisional discomfort. 4. Oxygen @ 1 Lpm continuously, or as directed by SpO2. FOLLOW UP APPOINTMENTS: 1. CV surgery: with Dr Gill at [facility] on 12/06 at 9:15am. 2. Cardiology: with Dr Benton at [facility] within 4-6 weeks. Appointment to be established during surgical visit. FOLLOW UP TESTING: CXR prior to surgical appointment.
== END 2016-11-29 14:49 | disposition home or self-care (01) | DRG 233 ==
LOC: FCATH 12:01 → F2W 14:48 → OBSVTOIN 14:48 → F2W 16:31 → F2N 11-25 07:27 → F2W 11-27 14:25
PROVIDERS: ADMIT Internal Medicine Cardiovascular Disease; ATTEND Thoracic Surgery (Cardiothoracic Vascular Surgery)
PROC: 02100Z8 Bypass Coronary Artery, One Artery from Right Internal Mammary, Open Approach (ICD-10-PCS; principal; 2016-11-25 07:15)
PROC: 5A1221Z Performance of Cardiac Output, Continuous (ICD-10-PCS; principal; 2016-11-25 07:15)
PROC: 02L70CK Occlusion of Left Atrial Appendage with Extraluminal Device, Open Approach (ICD-10-PCS; principal; 2016-11-25 07:15)
PROC: 02100Z9 Bypass Coronary Artery, One Artery from Left Internal Mammary, Open Approach (ICD-10-PCS; principal; 2016-11-25 07:15)
PROC: 021209W Bypass Coronary Artery, Three Arteries from Aorta with Autologous Venous Tissue, Open Approach (ICD-10-PCS; principal; 2016-11-25 07:15)
PROC: 06BQ4ZZ Excision of Left Saphenous Vein, Percutaneous Endoscopic Approach (ICD-10-PCS; 2016-11-25 07:15)
PROC: B2151ZZ Fluoroscopy of Left Heart using Low Osmolar Contrast (ICD-10-PCS; 2016-11-25 07:15)
PROC: 4A023N7 Measurement of Cardiac Sampling and Pressure, Left Heart, Percutaneous Approach (ICD-10-PCS; 2016-11-25 07:15)
PROC: B2111ZZ Fluoroscopy of Multiple Coronary Arteries using Low Osmolar Contrast (ICD-10-PCS; 2016-11-25 07:15)
DX: I25.10 Atherosclerotic heart disease of native coronary artery without angina pectoris (principal); I25.82 Chronic total occlusion of coronary artery; D62 Acute posthemorrhagic anemia; J96.01 Acute respiratory failure with hypoxia; F41.9 Anxiety disorder, unspecified; E78.5 Hyperlipidemia, unspecified; Z79.82 Long term (current) use of aspirin; I34.0 Nonrheumatic mitral (valve) insufficiency
CPT/HCPCS: 82947-QW; 97116-GP; 97161-GP; 97165-GO; 97535-GO; J0153; J0282; J0690; J1100; J1170; J1265; J1644; J1815; J1885; J2001; J2060; J2150; J2250; J2260; J2370; J2405; J2440; J2704; J2720; J2765; J2930; J3010; J7060; P9041; Q9967

== ENCOUNTER → 2017-06-15 | Outpatient (CLI) | payer OTHER | LOC: FIMAGING 09:48 | PROVIDERS: ATTEND Physician Assistant | DX: K76.0 Fatty (change of) liver, not elsewhere classified (principal); K82.4 Cholesterolosis of gallbladder; K86.89 Other specified diseases of pancreas ==